=== PATIENT | female | born 1975 | race Hispanic/Latino ===

== ENCOUNTER 2018-03-21 08:15 | Emergency (ER) | payer BC ==
[~2018-03-21] VITALS: Ht 160 cm; Wt 98.9 kg
--- OUTSIDE RECORDS SUMMARY | 2018-03-21 08:17 | XMS REPORT | Clinical Summary ---
Author Author [facility] Address Unknown Phone Unavailable Care Team Providers Care Coin Purse Framer Name Role Phone Stiven Gaines DO PCP Allergies Not on File Medications Not on file Active Problems Not on file Social History Date Tobacco Use Types Packs/Day Years Used Never Assessed Sex Assigned at Date Recorded Not on file Industry Job Start Date Occupation Not on file Not on file Not on file Travel End Travel History Travel Start No recent travel history available. Last Filed Vital Signs Not on file Plan of Treatment Health Maintenance Due Date Last Done Comments CERVICAL CANCER SCREENING 1998 INFLUENZA VACCINE 10/02/2017 Results Not on fileafter 03/20/2017 Insurance Payer Benefit Subscriber ID Type Phone Address Plan / Group BCBS BCBS xxxxxxxxxxxx PPO CHOICE PPO/[employer]UST[employer]EL[employer] PPO Advance Directives Patient has advance care planning documents on file. For more information, raul trevino contact: Ramirez Oropeza [address] [place] [address]
[2018-03-21] MEDS ORDERED: KETOROLAC TROMETHAMINE 30 MG/ML VIAL IV STA (08:28)
[2018-03-21] MEDS ORDERED: ONDANSETRON HCL INJ 2 MG/ML VIAL IV STA (08:35)
--- NOTE | 2018-03-21 09:15 | NUR ---
Specimen sent to [facility] for CBC.
[2018-03-21 09:35] LABS: BASOPHILS % 0.4 % (0.0-1.0); EOSINOPHILS # (AUTO) 0.1 (0.0-0.4); EOSINOPHILS % 0.6 % (0.0-6.0); HEMATOCRIT 36.7 % (34.2-44.1); HEMOGLOBIN 10.7 g/dL (12.0-16.0); LYMPHOCYTES # (AUTO) 1.2 (1.0-3.2); LYMPHOCYTES % 15.4 % (18.0-39.1); MEAN CORPUSCULAR HEMOGLOBIN 20.4 pg (28-32); MEAN CORPUSCULAR HGB CONC 29.2 g/dL (31-35); MONOCYTES # (AUTO) 0.4 (0.2-0.8); MONOCYTES % 5.3 % (4.4-11.3); NEUTROPHILS # (AUTO) 6.2 (2.1-6.9); NEUTROPHILS % 77.8 % (38.7-80.0); PLATELET COUNT 307 x10e3/uL (140-360); RED BLOOD COUNT 5.24 x10e6/uL (3.6-5.1); RED CELL DISTRIBUTION WIDTH 17.2 % (11.7-14.4)
--- NOTE | 2018-03-21 10:54 | Diagnostic Imaging Report ---
ADDENDUM #1 Calcified gallstones are seen in gallbladder neck. No CT evidence of cholecystitis. Signed by: Dr. Zhao Wheeler MD on 03/21/2018 11:12 AM ORIGINAL REPORT EXAM: CT Abdomen and Pelvis WITH contrast INDICATION: Abdominal pain ^[id number] ^[id number] COMPARISON: None. TECHNIQUE: Abdomen and pelvis were scanned utilizing a multidetector helical scanner from the lung base to the pubic symphysis after administration of IV contrast. Coronal and sagittal reformations were obtained. Dose modulation, iterative reconstruction, and/or weight based adjustment of the mA/kV was utilized to reduce the radiation dose to as low as reasonably achievable. Routine protocol was performed. Scan was performed when during portal venous phase. IV CONTRAST: 100 mL of Isovue-370 ORAL CONTRAST: Water COMPLICATIONS: None RADIATION DOSE: Total DLP: 756.61 mGy*cm Estimated effective dose: (DLP x 0.015 x size factor) mSv CTDIvol has been reviewed. It is below the limits set by the Radiation Protocol Committee (RPC). FINDINGS: LINES and TUBES: None. LOWER THORAX: Unremarkable HEPATOBILIARY: No focal hepatic lesions. No biliary ductal dilation. GALLBLADDER: No radio-opaque stones or sludge. No wall thickening. SPLEEN: No splenomegaly. PANCREAS: No focal masses or ductal dilatation. Focal ill-defined area of pancreatic uncinate process hypoenhancement (series 2, image 33). ADRENALS: No adrenal nodules KIDNEYS/URETERS: Kidneys enhance symmetrically. Mild left hydronephrosis and pelviectasis without hydroureter. Mildly dilated right renal pelvis without hydronephrosis. 0.5 cm distal left ureteral calculus (series 2, image 75). 1.1 cm left superior pole calculus. 2.7 cm left renal mid to inferior pole cyst. Additional bilateral subcentimeter hypodensities are too small to characterize. Calcifications at the bilateral corticomedullary junctions, right greater than left. GI TRACT: No abnormal distention, wall thickening, or evidence of bowel obstruction. Appendix is normal. PELVIC ORGANS/BLADDER: Cervix is prominent, which could be due to large nabothian cysts. The uterus and adnexa are unremarkable on CT assessment. Bladder is unremarkable. LYMPH NODES: No lymphadenopathy. VESSELS: Unremarkable. PERITONEUM / RETROPERITONEUM: No free air or fluid. BONES: L4-L5 degenerative changes. SOFT TISSUES: Small fat and trace fluid containing umbilical hernia. IMPRESSION: 1. 0.5 cm distal left ureteral calculus with mild left hydronephrosis. No significant hydroureter. 2. Medullary nephrocalcinosis. 3. Focal ill-defined area of pancreatic uncinate process hypoenhancement. Recommend follow-up CT in 3 months to reevaluate. Signed by: Dr. Zhao Wheeler MD on 03/21/2018 10:51 AM
[2018-03-21 12:08] VITALS: BP 148/89
[2018-03-27] MEDS ORDERED: OTC ALLERGY MED PO (16:50)
[2018-03-28] MEDS ORDERED: CETIRIZINE HCL10 MG PO (08:32)
== END 2018-03-21 12:05 | disposition home or self-care (01) ==
LOC: FSED 08:15
DX: R10.11 Right upper quadrant pain (principal); R10.13 Epigastric pain; R11.2 Nausea with vomiting, unspecified; M54.9 Dorsalgia, unspecified; K80.20 Calculus of gallbladder without cholecystitis without obstruction
CPT/HCPCS: 36415; 74177; 80048; 80076; 81003; 85025; 87086; 99284; J1885; J2405

== ENCOUNTER → 2018-03-28 | Day surgery (SDC) | payer BC ==
[~2018-03-28] MED LIST: ACETAMINOPHEN 1000 MG/100 ML IV ONE; ALBUTEROL SULFATE HFA 8GM INHALATION AEROSOL INH ONE; BUPIVACAINE 0.25%/EPI 30ML SDV INJ ONE; CETIRIZINE HCL10 MG PO; DEXAMETHASONE SOD PHOS INJ 4 MG/ML VIAL ONE; FENTANYL CITRATE/PF 100MCG/2 ML INJ ONE; GLYCOPYRROLATE INJ 1MG/ 5 ML SYR ONE; HYDROCODONE/APAP 5MG-325MG TAB ONE; HYDROGEN PEROXIDE 120 ML BTL ONE; KETOROLAC TROMETHAMINE 30 MG/ML VIAL ONE; LIDOCAINE HCL 2% JELLY 5 ML TUBE ONE; LIDOCAINE HCL 2% LOCAL INJ 5 ML SDV VIAL INJ ONE; METOCLOPRAMIDE HCL 10 MG/2ML VIAL ONE; MIDAZOLAM HCL 2 MG/2 ML VIAL ONE; MORPHINE SULFATE INJ 4 MG/ML INJ 1ML ONE; NEOSTIGMINE 5 MG/5ML SYR ONE; ONDANSETRON HCL INJ 2MG/ML 2ML 2 MG/ML VIAL ONE; OTC ALLERGY MED PO; PROPOFOL IV EMULSION 10 MG/ML 20 ML VIAL ONE; ROCURONIUM BROMIDE 10 MG/ML 5ML VIAL ONE; SEVOFLURANE INHAL SOLN 250 ML PEN BTL ONE; SUGAMMADEX SODIUM 200 MG/2 ML VIAL IV ONE
--- OUTSIDE RECORDS SUMMARY | 2018-03-28 08:24 | XMS REPORT ---
Author Author [facility] Address Unknown Phone Unavailable Care Team Providers Care Intake Manager Name Role Phone Kacey RANDALL Unavailable Unavailable Problems This patient has no known problems. Allergies, Adverse Reactions, Alerts This patient has no known allergies or adverse reactions. Medications This patient has no known medications. Results Test Description Test Time Test Comments Text Results Atomic Results Result Comments CT ABD/PEL WITH CONTRAST-HOPD 2018-03-21 10:30:00 [place] [id number] Patient Name: NOELLE ELLIS MR #: [id number] : 1975 Age/Sex: 43/F Req #: [id number] Adm Physician: Ordered by: PAYTON RANDALL MD Report #: [id number] Location: [facility] Room/Bed: Procedure: [id number] HOPD/CT ABD/PEL WITH CONTRAST-HOPD Exam Date: 03/21/18 Exam Time: 0955 REPORT STATUS: Signed ADDENDUM #1 Calcified gallstones are seen in gallbladder neck. No CT evidence of cholecystitis. Signed by: Dr. Zhao Wheeler MD on 03/21/2018 11:12 AM ORIGINAL REPORT EXAM: CT Abdomen and Pelvis WITH contrast INDICATION: Abdominal pain [id number] COMPARISON: None. TECHNIQUE: Abdomen and pelvis were scanned utilizing a multidetector helical scanner from the christina ng base to the pubic symphysis after administration of IV contrast. Coronal and sagittal reformations were obtained. Dose modulation, iterative reconstruction, and/or weight based adjustment of the mA/kV was utilized to reduce the radiation dose to as low as reasonably achievable. Routine protocol was performed. Scan was performed when during portal venous phase. IV CONTRAST: 100 mL of Isovue-370 ORAL CONTRAST: Water COMPLICATIONS: None RADIATION DOSE: Total DLP: 756.61 mGy*cm Estimated effective dose: (DLP x 0.015 x size factor) mSv CTDIvol has been reviewed. It is below the limits set by the Radiation Protocol Committee (RPC). FINDINGS: LINES and TUBES: None. LOWER THORAX: Unremarkable HEPATOBILIARY: No focal hepatic lesions. No biliary ductal dilation. GALLBLADDER: No radio-opaque stones or sludge. No wall thickening. SPLEEN: No splenomegaly. PANCREAS: No focal masses or ductal dilatation. Focal ill-defined area of pancreatic uncinate process hypoenhancement (series 2, image 33). ADRENALS: No adrenal nodules KIDNEYS/URETERS: Kidneys enhance symmetrically. Mild left hydronephrosis and pelviectasis without hydroureter. Mildly dilated right renal pelvis without hydronephrosis. 0.5 cm distal left ureteral calculus (series 2, image 75). 1.1 cm left superior pole calculus. 2.7 cm left renal mid to inferior pole cyst. Additional bilateral subcentimeter hypodensities are too small to characterize. Calcifications at the bilateral corticomedullary junctions, right greater than left. GI TRACT: No abnormal distention, wall thickening, or evidence of bowel obstruction. Appendix is normal. PELVIC ORGANS/BLADDER: Cervix is prominent, which could be due to large nabothian cysts. The uterus and adnexa are unremarkable on CT assessment. Bladder is unremarkable. LYMPH NODES: No lymphadenopathy. VESSELS: Unremarkable. PERITONEUM / RETROPERITONEUM: No free air or fluid. BONES: L4-L5 degenerative changes. SOFT TISSUES: Small fat and trace fluid containing umbilical hernia. IMPRESSION: 1. 0.5 cm distal left ureteral calculus with mild left hydronephrosis. No significant hydroureter. 2. Medullary nephrocalcinosis. 3. Focal ill-defined area of pancreatic uncinate process hypoenhancement. Recommend follow-up CT in 3 months to reevaluate. Signed by: Dr. Zhao Wheeler MD on 03/21/2018 10:51 AM Dictated By: ZHAO WHEELER MD [id number] Transcribed By: DON on 03/21/18 1051 COPY TO: PAYTON RANDALL MD
--- OUTSIDE RECORDS SUMMARY | 2018-03-28 08:24 | XMS REPORT | Clinical Summary ---
Author Author [facility] Address Unknown Phone Unavailable Care Team Providers Care Senior Group Manager Name Role Phone Stiven Gaines DO PCP [...] INFLUENZA VACCINE 10/02/2017 Results Not on fileafter 03/27/2017 Insurance Payer Benefit Subscriber ID Type Phone Address Plan / Group BCBS BCBS xxxxxxxxxxxx PPO CHOICE PPO/[employer]UST[employer] PPO Advance Directives Patient has advance care planning documents on file. For more information, raul trevino contact: Ramirez Oropeza [address] [place] [address]
[2018-03-28 12:31] LABS: ALANINE AMINOTRANSFERASE 15 IU/L (0-55); ALBUMIN 3.5 g/dL (3.5-5.0); ALBUMIN/GLOBULIN RATIO 1.3 (0.8-2.0); ALKALINE PHOSPHATASE 98 IU/L (40-150); BLOOD UREA NITROGEN 7 mg/dL (7-26); BUN/CREATININE RATIO 9 (6-25); CALCIUM 10.2 mg/dL (8.4-10.2); CARBON DIOXIDE 22 mmol/L (22-29); CHLORIDE 110 mmol/L (98-107); CREATININE, SERUM 0.81 mg/dL (0.57-1.11); EST GLOMERULAR FILTRATION RATE > 60 ML/MIN (60-); GLUCOSE 128 mg/dL (74-118); SODIUM 138 mmol/L (136-145)
--- NOTE | 2018-03-28 15:46 | Operative Report ---
DATE OF PROCEDURE: March 28, 2018 PREOPERATIVE DIAGNOSES 1. Cholelithiasis. 2. Biliary colic. 3. Umbilical hernia. POSTOPERATIVE DIAGNOSES 1. Cholelithiasis. 2. Biliary colic. 3. Umbilical hernia. PROCEDURE PERFORMED: Laparoscopic cholecystectomy. ANESTHESIA: General endotracheal. ESTIMATED BLOOD LOSS: Minimal. DRAINS: None. COMPLICATIONS: None. INDICATIONS AND FINDINGS: A 43-year-old female admitted for cholecystectomy. She was seen at [facility] emergency room with right upper quadrant pain. A CT scan revealed cholelithiasis. Liver chemistries were normal. INTRAOPERATIVE FINDINGS: Physical examination revealed an umbilical hernia. Intraoperative findings were cholelithiasis with 2 large stones impacted in the neck of the gallbladder. There was no ductal dilatation. There was an umbilical hernia with herniation of properitoneal fat. This was repaired primarily. DESCRIPTION OF PROCEDURE: With the patient lying on the operating table in the supine position and after administration of general anesthesia, she was prepped and draped for laparoscopic cholecystectomy. The procedure was begun by establishing a pneumoperitoneum in the right upper quadrant midclavicular line because of the large size of the patient. A pneumoperitoneum was insufflated to 15 mm of pressure. Then the 5-mm trocar placed in that location. The camera was introduced. At this point, then we made an incision inferior to the umbilicus in a semicircular fashion. Then identified the hernia and dissected it free from the surrounding tissues. Then put the 10/11 trocar through the defect. We then placed the patient in reverse Trendelenburg position and rotated to the left. Placed a 10 mm subxiphoid port and finally a right anterior axillary line trocar was placed. There were adhesions of the gallbladder to the omentum, which were sharply lysed. Then we exposed the neck of the gallbladder and began the dissection high in the neck of the gallbladder until we exposed the cystic duct. The junction with the common bile duct was seen. Then the cystic artery isolated too. Then we transected both structures between titanium clips after visualization of the common duct and common hepatic duct. We continued the dissection over the liver bed until we detached the gallbladder. Electrocautery was used to cauterize any bleeding vessels. The gallbladder was placed in an Endobag and removed through the umbilical port. We reintroduced the pneumoperitoneum. Insufflated the abdomen and inspected the operative field, and again there was no bile leak. No bleeding. No apparent bowel injury. We then went ahead and closed the umbilical defect with a series of interrupted 1 Vicryl stitches, and then a infiltrated the fascia there with 0.25% Marcaine with epinephrine, as well as the incision of all the ports. We closed the umbilical site with 3-0 Vicryl for the soft tissues and 2-0. Then the subxiphoid port and soft tissues were closed using 3-0 Vicryl. The skin of all the ports infiltrated with 0.25% Marcaine with epinephrine. Then we closed the umbilical port with 3-0 silk and meg for the remaining port sites. Sterile dressing was applied. The patient tolerated the procedure. Taken to the recovery room in stable condition. The family was informed of intraoperative findings and instructions were given. Job#: [id number] MARY
[2018-03-28 16:50] VITALS: BP 129/85
== END | disposition home or self-care (01) ==
LOC: OR 08:16
PROVIDERS: ATTEND Surgery
DX: K80.10 Calculus of gallbladder with chronic cholecystitis without obstruction (principal); K42.9 Umbilical hernia without obstruction or gangrene; N20.0 Calculus of kidney; K82.8 Other specified diseases of gallbladder; Z68.38 Body mass index [BMI] 38.0-38.9, adult; Z87.891 Personal history of nicotine dependence
CPT/HCPCS: 36415; 47562; 80053; 81025; 88304; C1766; J0131; J1100; J1885; J2001 ×2; J2250; J2270; J2405; J2704; J2765; J3490